=== PATIENT | female | born 1975 | race Caucasian/White ===

== ENCOUNTER 2016-06-28 14:44 | Emergency (ER) | payer MEDICARE ==
[~2016-06-28] VITALS: Ht 165.1 cm; Wt 95.3 kg
[2016-06-28] MEDS ORDERED: IBUP600T26 PO (15:03)
[2016-06-28] MEDS ORDERED: AZIT250T3 PO (17:07)
[2016-06-28] MEDS ORDERED: IBUP80TA PO (17:08)
[2016-06-28] MEDS ORDERED: MUCI600T34 PO (17:08)
[2016-06-28] MEDS ORDERED: AZITHROMYCIN 250 MG TAB PO ONE (17:15)
[2016-06-28 17:16] VITALS: BP 128/78
== END 2016-06-28 17:26 | disposition home or self-care (01) ==
LOC: M ED 16:42
DX: J01.90 Acute sinusitis, unspecified (principal); Z88.2 Allergy status to sulfonamides; Z79.1 Long term (current) use of non-steroidal anti-inflammatories (NSAID); M54.9 Dorsalgia, unspecified; F41.9 Anxiety disorder, unspecified; F20.9 Schizophrenia, unspecified